=== PATIENT | male | born 1970 | race Caucasian/White ===

== ENCOUNTER 2016-12-17 13:12 | Emergency (ER) | payer BC, OTHER ==
[~2016-12-17] VITALS: Ht 188 cm; Wt 150.0 kg
[~2016-12-17 13:12] MED LIST: AMOX875T PO; HYDR12.56 PO; LISI-519 PO; NYST1000 SWISH-SWAL
[2016-12-17 13:22] VITALS: BP 131/81; PULSE 89; RESP 18; TEMP 98.8; O2SAT 97
[2016-12-17] MEDS ORDERED: PRED5PAK PO (13:30)
[2016-12-17] MEDS ORDERED: CYCL1TAB29 PO ×2 (13:30→13:50)
[2016-12-17] MEDS ORDERED: LISI20TA PO (13:30)
[2016-12-17] MEDS ORDERED: IBUP800T23 PO (13:50)
--- NOTE | 2016-12-17 13:51 | PD ---
HPI Chief Complaint: Musculoskeletal Complaint Time Seen by Provider: 13:45 Travel History International Travel<30 days: No Contact w/Intl Traveler<30days: No Traveled to known affect area: No History of Present Illness HPI Patient is a 46-year-old male who presents to the emergency department for evaluation of low back pain. Patient states he hurt his back at work 2 days ago. 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 Patient went to [facility] after work where they performed imaging and prescribed a Medrol Dosepak and cyclobenzaprine. Patient took the cyclobenzaprine last night but had not taken it prior to that time. He states his back has gotten more sore and tight, it's difficult to change positions or get in and out of the car. He states that he has no bladder or bowel incontinence, no saddle paresthesia, no weakness in his extremities. He denies any injury or trauma. [facility] Past Medical History Diminished Hearing: No Hypertension: Yes Social History Alcohol Use: No Tobacco Use: Yes Substance Use: No Allergies-Medications (Allergen,Severity, Reaction): Coded Allergies: No Known Allergies (Unverified , 12/17/16) Reported Meds & Prescriptions Reported Meds & Active Scripts Active Reported Prednisone (21) 5 mg tab Dose Pack (Prednisone) 5 Mg Dspk 5 Mg PO DIRECTED Flexeril (Cyclobenzaprine HCl) 10 Mg Tab 10 Mg PO TID Lisinopril-Hctz 20-12.5 Mg Tab 1 Tab PO DAILY Review of Systems Except as stated in HPI: all other systems reviewed are Neg Musculoskeletal: Positive: Myalgias, Cramping, Pain Physical Exam Narrative GENERAL: Obese, well-developed patient. SKIN: Warm and dry. HEAD: Normocephalic. EYES: No scleral icterus. No injection or drainage. NECK: Supple, trachea midline. No JVD or lymphadenopathy. CARDIOVASCULAR: Regular rate and rhythm without murmurs, gallops, or rubs. RESPIRATORY: Breath sounds equal bilaterally. No accessory muscle use. GASTROINTESTINAL: Abdomen soft, non-tender, nondistended. MUSCULOSKELETAL: No cyanosis, or edema. Tender to palpation paraspinal musculature in the lumbar region. 5/5 muscle strength in bilateral lower extremities. Right leg lift elicits pain in the right lower back. Patient is neurovascularly intact. BACK: Nontender without obvious deformity. No CVA tenderness. Data Data Last Documented VS Vital Signs Date Time Temp Pulse Resp B/P Pulse Ox O2 Delivery O2 Flow Rate FiO2 12/17/16 13:22 98.8 89 18 131/81 97 [facility] Medical Decision Making Medical Screen Exam Complete: Yes Emergency Medical Condition: Yes Interpretation(s) Vital Signs Date Time Temp Pulse Resp B/P Pulse Ox O2 Delivery O2 Flow Rate FiO2 12/17/16 13:22 98.8 89 18 131/81 97 Differential Diagnosis Sprain versus strain versus spasm versus other Narrative Course Patient is a 46-year-old male who presents emergency department for evaluation of low back pain/spasms. Patient was seen and evaluated at [facility] 2 days ago and prescribed Flexeril and a Medrol Dosepak. Patient is only taken 2 doses of the Flexeril. He had imaging performed at that time and per his report he states he was told there was no abnormality. His examination is most consistent with muscle strain, spasms. Patient is neurologically intact. Patient was advised to take cyclobenzaprine 3 times a day, with an anti- inflammatory medication. Patient was provided with a prescription for ibuprofen , he is encouraged to continue range of motion exercises, apply warm moist heat to affected area, and avoid bed rest. He'll be given 2 days off of work as well. Patient is to follow-up with his primary doctor or at [facility]. Additionally patient was encouraged to return to emergency department for any new or worsening symptoms. Diagnosis Primary Impression: Spasm of lumbar paraspinous muscle Additional Impression: Strain of lumbar paraspinal muscle Qualified Code: S39.012D - Strain of lumbar paraspinal muscle, subsequent encounter Referrals: Primary Care Physician Patient Instructions: General Instructions, Muscle Spasm (ED), Muscle Strain ( ED) Departure Forms: Tests/Procedures, Work Release Enter return to work date: Dec 21, 2016 Additional Instructions: Follow-up with your primary doctor Take medications as directed Return to emergency department for any new or worsening symptoms Apply warm moist heat to affected area, continue range of motion exercises, avoid bed rest Med/Other Pt SpecificInfo: Prescription(s) given Scripts Cyclobenzaprine (Flexeril)10 Mg Tab10 Mg PO TID PRN (MUSCLE SPASM) 7 Days Ref 0 Prov:Alexandra Duron 12/17/16 Ibuprofen 800 Mg [id number] Mg PO Q8H PRN (Pain/Inflammation) 7 Days Ref 0 Prov:Alexandra Duron 12/17/16 Disposition: 01 DISCHARGE HOME Condition: Stable Alexandra Duron Dec 17, 2016 13:51
== END 2016-12-17 13:58 | disposition home or self-care (01) ==
LOC: PHEFT 13:12
DX: M62.830 Muscle spasm of back (principal); S39.012A Strain of muscle, fascia and tendon of lower back, initial encounter; X50.3XXA Overexertion from repetitive movements, initial encounter; Y93.39 Activity, other involving climbing, rappelling and jumping off; Y99.0 Civilian activity done for income or pay; I10 Essential (primary) hypertension
CPT/HCPCS: 99283